=== PATIENT | male | born 1965 | race Two or more races ===

== ENCOUNTER 2016-09-28 16:31 | Emergency (ER) | payer MEDICARE, MEDICAID ==
[~2016-09-28 16:31] MED LIST: AZITHROMYCIN250 M1 PO; BENADRYL25 M3 PO; LEVAQUIN750 M1 PO; MEDROL4 M2 PO; NO HOME MEDICATION XX; PREDNISONE20 M1 PO; PROMETHAZINE-C118 ML PO; TYLENOL EXTRA500 M1 PO; TYLENOL325 M2 PO; [UNRECOGNIZED DRUG - REMARK]
[2016-09-28] MEDS ORDERED: ZANTAC150 M1 PO (17:16)
[2016-09-28] MEDS ORDERED: LEXAPRO20 M2 PO (17:16)
[2016-09-28] MEDS ORDERED: BENZTROPINE MESY1 M1 PO (17:17)
[2016-09-28] MEDS ORDERED: ATIVAN2 M1 PO (17:17)
[2016-09-28] MEDS ORDERED: SEROQUEL100 M2 PO (17:18)
[2016-09-28] MEDS ORDERED: MINIPRESS1 M1 PO (17:18)
[2016-09-28 18:21] LABS: BASO % 0.2 % (0-2); EOS % 0.7 % (0-7); EOSINOPHIL ABSOLUTE COUNT 0.1 tho/cmm (0.0-0.7); HCT-HEMATOCRIT 44.6 % (36.0-53.5); HGB-HEMOGLOBIN 15.2 gm/dl (13.5-17.0); IMMATURE GRANULOCYTES ABSOLUTE 0.02 tho/cmm (0-0.03); IMMATURE GRANULOCYTES PERCENT 0.2 % (0-0.3); LYMPH % 14.6 % (20-45); LYMPH ABSOLUTE COUNT 1.4 tho/cmm (0.8-4.5); MCH (MEAN CORPUSCULAR HGB) 29.6 pg (28.0-32.0); MCHC MEAN CORPUSCULAR HGB CONC 34.1 % (32.0-36.0); MCV (MEAN CELL VOLUME) 86.9 fl (82.0-96.0); MEAN PLATELET VOLUME 12.9 cmc (9.4-12.4); MONO % 5.5 % (0-12); MONOCYTE ABSOLUTE COUNT 0.5 tho/cmm (0.0-1.2); NEUTROPHIL ABSOLUTE COUNT 7.7 tho/cmm (1.6-8.0); NEUTROPHIL-AUTOMATED 7.7 tho/cmm (1.6-8.0); NEUTROPHILS % 78.8 % (40-80); PLATELET COUNT 173 tho/cmm (150-450); RED BLOOD COUNT 5.13 mil/cmm (4.40-5.70); RED CELL DISTRIBUTION WIDTH 13.6 % (12.4-16.4); WHITE BLOOD COUNT 9.8 tho/cmm (4.0-10.0)
[2016-09-28 18:32] LABS: ALB/GLOB RATIO 0.9 (0.8-2.0); ALBUMIN 3.9 g/dl (3.5-5.0); ALKALINE PHOSPHATASE 77 U/L (33-138); ALT/SGPT 52 U/L (12-78); BILIRUBIN,TOTAL 1.3 mg/dl (0.0-1.5); BLOOD UREA NITROGEN 19 mg/dl (6-24); C-REACTIVE PROTEIN 1.6 mg/dl (0-0.9); CALCIUM 8.9 mg/dl (8.5-10.5); CARBON DIOXIDE-VENOUS 22 mmol/L (22-32); CHLORIDE 107 mmol/l (96-110); CREATININE 1.04 mg/dl (0.60-1.30); GLUCOSE 94 mg/dL (70-110); LIPASE 153 U/L (73-393); SODIUM 137 mmol/L (135-145); eGFR VALUE FOR BLACK >90 mL/Min
[2016-09-28 18:34] LABS: ANION GAP 12 mmol/L (0-20); AST/SGOT 29 U/L (10-40); POTASSIUM 3.9 mmol/L (3.7-5.1)
[2016-09-28] MEDS ORDERED: LEVAQUIN750 M1 PO (19:44)
== END 2016-09-28 19:53 ==
LOC: EDMED 16:31
PROVIDERS: Nurse Practitioner Family
DX: R19.7 Diarrhea, unspecified (principal)
CPT/HCPCS: J7030